=== PATIENT | male | born 1990 | race Caucasian/White ===

== ENCOUNTER 2018-06-11 10:12 | Emergency (ER) | payer SELFPAY ==
[2018-06-11] MEDS ORDERED: Lorazepam 2 MG/ML VIAL ONE (10:28)
[2018-06-11] MEDS ORDERED: Morphine 4 MG/ML VIAL ONE ×2 (10:28→11:04)
[2018-06-11 10:36] LABS: #Basophils 0.1 thou/uL (0.0-0.2); #Eosinphils 0.5 thou/uL (0.0-0.7); #Lymphocytes 2.4 thou/uL (1.20-3.40); #Monocytes 0.8 thou/uL (0.11-0.59); #Neutrophils 5.1 thou/uL (1.40-6.50); %Basophils 1.6 % (0.0-1.0); %Eosinophils 5.3 % (0.0-10.0); %Lymphocytes 27.2 % (21.0-51.0); %Monocytes 8.3 % (0.0-10.0); %Neutrophils 57.6 % (42.0-75.0); Hemoglobin 16.5 g/dL (14.0-18.0); Mean Corpuscular HGB CONC 34.4 g/dL (32.0-36.0); Mean Corpuscular Hemoglobin 31.5 pg (27.0-31.0); Mean Corpuscular Volume 91.6 fL (78.0-98.0); Mean Platelet Volume 6.5 fL (7.4-10.4); Platelet Count 366 thou/uL (130-400); RBC Distribution Width 11.6 % (11.5-14.5); Red Blood Cell (RBC) Count 5.25 mill/uL (4.70-6.10); White Blood Cell (WBC) Count 8.9 thou/uL (4.8-10.8)
--- NOTE | 2018-06-11 10:51 | RAD ---
AP CHEST: History: Shortness of breath. Date: 06-11-18 Comparison: 04-29-16 FINDINGS: AP chest demonstrates old healed left sided rib fractures. Left clavicular plate and screws in place. There is extensive right sided pneumothorax with approximately 70% volume loss. The right lung appear s to be collapsed. IMPRESSION: Large right sided pneumothorax. Findings called to Dr. Martinez in the Emergency Department at 10:42 a.m. on 06-11-18. Code CR POS: [facility]
[2018-06-11 10:54] LABS: ALT (SGPT) 43 U/L (8-55); AST (SGOT) 26 U/L (5-34); Alkaline Phosphatase 67 U/L (40-150); Anion Gap 15 mmol/L (10-20); BUN (Urea Nitrogen) 21 mg/dL (8.9-20.6); Bilirubin, Total 0.3 mg/dL (0.2-1.2); CK (CPK) 157 U/L (30-200); Calc. Creatinine Clearance 0 mL/min (70-130); Calcium 10.4 mg/dL (7.8-10.44); Carbon Dioxide 23 mmol/L (22-29); Chloride 103 mmol/L (98-107); Estimated GFR-MDRD 89; Glucose 73 mg/dL (70-105); Lipase 91 U/L (8-78); Potassium 3.7 mmol/L (3.5-5.1); Sodium 137 mmol/L (136-145)
--- NOTE | 2018-06-11 11:36 | RAD ---
CHEST ONE VIEW: History: Chest pain. Chest tube replacement. Comparison: Same day. FINDINGS: A right sided thoracostomy tube is in place and the right sided pneumothorax is much improved with ap ex of the right pneumothorax between the posterior right 2nd and 3rd ribs. No mediastinal shift. Left lung is clear. IMPRESSION: Interval thoracostomy tube placement with marked sized decreased right sided pneumothorax. POS: [facility]
--- NOTE | 2018-06-11 12:41 | CT ---
CT OF THE THORAX WITHOUT CONTRAST: INDICATION: History of pneumothorax and chest tube placement. COMPARISON: Radiograph dated 06/11/2018. FINDINGS: Right-sided chest tube projects up into the anterior right hemithorax. A small amount of residual pn eumothorax is present within the right lung apex. Small bullae are present within the right lung ape x. One measures 1.4 cm. An additional one measures 1.6 cm. There is subsegmental atelectasis withi n the right lower lobe. There are small bullae involving the left lung apex, one measuring 1.7 cm an d an additional measuring 8 mm. Visualized upper abdomen is unremarkable. No acute osseous abnormality is evident. IMPRESSION: 1. Small residual apical right-sided pneumothorax with right-sided chest tube placement. 2. Small apical blebs bilaterally. 3. Subsegmental atelectasis within the right lower lobe. POS: [facility]
== END 2018-06-11 12:50 | disposition home or self-care (01) ==
LOC: NAV ERS 10:12
DX: J93.11 Primary spontaneous pneumothorax (principal); F17.220 Nicotine dependence, chewing tobacco, uncomplicated
CPT/HCPCS: 32554; 71045; 71250; 80053; 82550; 83690; 83880; 84484; 85025; 85379; 93005; 96374; 96375; 96376; J2060; J2270

== ENCOUNTER 2018-06-13 08:56 | Emergency (ER) | payer SELFPAY ==
[2018-06-13] MEDS ORDERED: Lidocaine 1% (PF) 30 ML VIAL ONE (09:11)
--- NOTE | 2018-06-13 10:30 | RAD ---
SINGLE VIEW OF THE CHEST: COMPARISON: 06/11/2018. HISTORY: Chest tube removal. FINDINGS: A single view of the chest shows a normal-size cardiomediastinal silhouette. The right-sided chest t ube has been removed without evidence of pneumothorax. There is no evidence of consolidation, mass, or pleural effusion. Hardware is seen in the left clavicle. IMPRESSION: Status post chest tube removal without evidence of pneumothorax. POS: [facility]
== END 2018-06-13 09:56 | disposition home or self-care (01) ==
LOC: NAV ERS 08:56
DX: J93.11 Primary spontaneous pneumothorax (principal); F17.220 Nicotine dependence, chewing tobacco, uncomplicated
CPT/HCPCS: 71045; J2001